=== PATIENT | female | born 1970 | race Caucasian/White ===

== ENCOUNTER 2017-06-16 10:01 | Emergency (ER) | payer OTHER ==
[~2017-06-16] VITALS: Ht 162.6 cm; Wt 69.5 kg
[2017-06-16 10:06] VITALS: Ht 162.6 cm; Wt 69.5 kg
[2017-06-16] MEDS ORDERED: morphine 4 MG/ML VIAL IV STA (11:34)
[2017-06-16] MEDS ORDERED: ONDANSETRON 4 MG INJ IV STA (11:34)
[2017-06-16 11:55] LABS: BASOPHILS % 0.2 % (0.0-2.0); EOSINOPHILS # 0.1 10^3/ul (0.0-0.5); EOSINOPHILS % 0.5 % (0.0-7.0); HEMATOCRIT 23.3 % (37.0-47.0); HEMOGLOBIN 7.4 g/dl (12.0-16.0); LYMPHOCYTES # 1.7 10^3/ul (0.8-2.9); LYMPHOCYTES % 10.7 % (15.0-51.0); MEAN CORPUSCULAR HGB CONC 31.8 g/dl (32.0-37.0); MEAN CORPUSCULAR VOLUME 94.3 fl (82.0-101.0); MEAN PLATELET VOLUME 8.3 fl (7.4-10.4); NEUTROPHILS % 81.8 % (39.0-77.0); NUCLEATED RED BLOOD CELLS% 0.3 /100WBC (0.0-0.0); PLATELET COUNT 334 10^3/UL (140-415); RED BLOOD COUNT 2.47 10^6/ul (4.20-5.40); RED CELL DISTRIBUTION WIDTH 13.2 % (11.5-14.5); WHITE BLOOD COUNT 15.9 10^3/ul (4.8-10.8)
[2017-06-16 12:13] LABS: ALBUMIN 3.4 g/dl (3.3-4.9); ALBUMIN/GLOBULIN RATIO 1.03; BILIRUBIN,INDIRECT 0.2 mg/dl (0-1.1); BILIRUBIN,TOTAL 0.2 mg/dl (0.2-1.3); CALCIUM 8.5 mg/dl (8.4-10.2); CREATININE 0.63 mg/dl (0.44-1.00); POTASSIUM 3.7 mmol/L (3.5-5.1); TOTAL PROTEIN 6.7 g/dl (6.1-8.1)
[2017-06-16 12:22] LABS: ADD UMIC YES; UR ASCORBIC ACID NEGATIVE (NEGATIVE); UR BACTERIA FEW /HPF (NONE SEEN); UR BILIRUBIN (Dip) NEGATIVE (NEGATIVE); UR BLOOD (Dip) 3+ mg/dL (NEGATIVE); UR CLARITY CLEAR (CLEAR); UR COLOR STRAW (YELLOW); UR GLUCOSE (Dip) NEGATIVE (NEGATIVE); UR KETONES (Dip) NEGATIVE (NEGATIVE); UR LEUKOCYTE ESTERASE (Dip) 1+ Leu/ul (NEGATIVE); UR NITRITE (Dip) NEGATIVE (NEGATIVE); UR RBC 3 /HPF (0-5); UR SPECIFIC GRAVITY (Dip) 1.002 (1.003-1.030); UR TOTAL PROTEIN (Dip) NEGATIVE (NEGATIVE); UR UROBILINOGEN (Dip) NEGATIVE (NEGATIVE)
--- NOTE | 2017-06-16 13:57 | ERD ---
ER Documentation Chief Complaint Chief Complaint ap w/heavy vaginal bleeding x3wks HPI This 46-year-old female who presents to the emergency department today complaining of abdominal pain and heavy vaginal bleeding for the past 3 weeks. Patient states that she had irregular periods for the past 4 months and then her menstrual cycle returned and she has had it for 3 weeks. States that she has a history of fibroids and a left-sided ovarian cyst. States that she initially at some point was on hormone replacement but is no longer taking any medication. Denies any fevers or chills. ROS All systems reviewed and are negative except as per history of present illness. Medications Home Meds Active Scripts Medroxyprogesterone Acetate* (Provera*) 10 Mg Tablet, 10 MG PO DAILY for 5 Days , TAB Prov:GABRIELLA PATRICIA PA-C 06/16/17 Cephalexin* (Keflex*) 500 Mg Capsule, 500 MG PO QID for 7 Days, CAP Prov:GABRIELLA PATRICIA PA-C 06/16/17 Naproxen* (Naprosyn*) 500 Mg Tablet, 500 MG PO BID Y for PAIN AND/OR INFLAMMATION, #30 TAB Prov:GABRIELLA PATRICIA PA-C 06/16/17 Docusate Sodium* (Colace*) 100 Mg Capsule, 100 MG PO TID, #30 CAP Prov:GABRIELLA PATRICIAC 06/16/17 Polyethylene Glycol* (Miralax*) 17 Gm Powd.pack, 17 GM PO DAILY, #30 PACKET Prov:GABRIELLA PATRICIA PA-C 06/16/17 Ferrous Sulfate* (Ferrous Sulfate*) 325 Mg Tabec, 325 MG PO BID, #30 TAB Prov:GABRIELLA PATRICIAC 06/16/17 Hydrocodone/Acetaminophen ([place] 5-325 Tablet) 1 Each Tablet, 1 TAB PO Q6H Y for PAIN, #10 TAB Prov:GABRIELLA PATRICIAC 06/16/17 Allergies Allergies: Coded Allergies: No Known Allergy (Unverified , 06/16/17) PMhx/Soc Medical and Surgical Hx: pt denies Medical Hx, pt denies Surgical Hx Physical Exam Vitals Vital Signs Date Time Temp Pulse Resp B/P Pulse Ox O2 Delivery O2 Flow Rate FiO2 06/16/17 10:06 98.4 102 20 135/74 99 Physical Exam Const: NAD Head: Atraumatic Eyes: Normal Conjunctiva ENT: Normal External Ears, Nose and Mouth. Neck: Full range of motion..~ No meningismus. Resp: Clear to auscultation bilaterally Cardio: Regular rate and rhythm, no murmurs Abd: Soft,diffuse lower abdominal and pelvic pain non distended. Normal bowel sounds no specific tenderness at McBurney's. Skin: No petechiae or rashes Back: No midline or flank tenderness Ext: No cyanosis, or edema Neur: Awake and alert Psych: Normal Mood and Affect Result Diagram: 06/16/17 1144 06/16/17 1144 Results 24 hrs Laboratory Tests Test 06/16/17 11:44 06/16/17 11:57 White Blood Count 15.910^3/ul Red Blood Count 2.4710^6/ul Hemoglobin 7.4g/dl Hematocrit 23.3% Mean Corpuscular Volume 94.3fl Mean Corpuscular Hemoglobin 30.0pg Mean Corpuscular Hemoglobin Concent 31.8g/dl Red Cell Distribution Width 13.2% Platelet Count 62272^3/UL Mean Platelet Volume 8.3fl Neutrophils % 81.8% Lymphocytes % 10.7% Monocytes % 6.0% Eosinophils % 0.5% Basophils % 0.2% Nucleated Red Blood Cells % 0.3/100WBC Neutrophils # 13.010^3/ul Lymphocytes # 1.710^3/ul Monocytes # 1.010^3/ul Eosinophils # 0.110^3/ul Basophils # 0.010^3/ul Nucleated Red Blood Cells # 0.010^3/ul Sodium Level 141mmol/L Potassium Level 3.7mmol/L Chloride Level 105mmol/L Carbon Dioxide Level 27mmol/L Anion Gap 13 Blood Urea Nitrogen 7mg/dl Creatinine 0.63mg/dl Glucose Level 78mg/dl Calcium Level 8.5mg/dl Total Bilirubin 0.2mg/dl Direct Bilirubin 0.00mg/dl Indirect Bilirubin 0.2mg/dl Aspartate Amino Transf (AST/SGOT) 15IU/L Alanine Aminotransferase (ALT/SGPT) 28IU/L Alkaline Phosphatase 51IU/L Total Protein 6.7g/dl Albumin 3.4g/dl Globulin 3.30g/dl Albumin/Globulin Ratio 1.03 Lipase 57U/L Urine Color STRAW Urine Clarity CLEAR Urine pH 8.0 Urine Specific Alexander 1.002 Urine Ketones NEGATIVEmg/dL Urine Nitrite NEGATIVEmg/dL Urine Bilirubin NEGATIVEmg/dL Urine Urobilinogen NEGATIVEmg/dL Urine Leukocyte Esterase 1+Danny/ul Urine Microscopic RBC 3/HPF Urine Microscopic WBC 5/HPF Urine Bacteria FEW/HPF Urine Hemoglobin 3+mg/dL Urine Glucose NEGATIVEmg/dL Urine Total Protein NEGATIVEmg/dl Current Medications Medications (Trade) Dose Ordered Sig/Reny Route PRN Reason Start Time Stop Time Status Last Admin Dose Admin Morphine Sulfate (morphine) 4 mg ONCE STAT IV 06/16/17 11:34 06/16/17 11:36 DC 06/16/17 12:07 Ondansetron HCl (Zofran Inj) 4 mg ONCE STAT IV 06/16/17 11:34 06/16/17 11:36 DC 06/16/17 12:07 Ketorolac Tromethamine (Toradol) 30 mg ONCE STAT IV 06/16/17 15:23 06/16/17 15:24 DC 06/16/17 15:38 DIAGNOSTIC IMAGING REPORT Patient: ISSAC FAUST : 1970 Age: 46 Sex: F MR #: [id number] DOS: 06/16/17 1224 Ordering MD: GABRIELLA PATRICIA PA-C Location: [facility] Room/Bed: PROCEDURE: CT Abdomen and Pelvis without contrast CLINICAL INDICATION: Left-sided abdominal pain, vaginal bleeding, history of ovarian cyst TECHNIQUE: Transaxial images were obtained through the abdomen and pelvis on a multi-slice scanner without the intravenous contrast administration. No oral contrast had previously been given. Sagittal and coronal re-formations were subsequently reconstructed. One or more of the following dose reduction techniques were used: - Automated exposure control. - Adjustment of the mA and/or kV according to patient size. - Use of iterative reconstruction technique. Radiation dose: CTDIvol = 11.48 mGy; DLP = 614.95 mGy-cm. COMPARISON: No prior studies are available for comparison. FINDINGS: Lung bases: The visualized lung bases appear unremarkable. Liver: Normal in size and in attenuation. There is no focal lesion. Gallbladder: Surgical hoda are seen in the gallbladder fossa. Bile ducts: The common hepatic duct is dilated to 1.2 mm. The extrahepatic biliary tree tapers distally with the common bile duct measuring 6.3 mm through the superior head of the pancreas and and tapering further more distally. Pancreas: Appears normal with no mass or inflammation evident. Spleen: Normal in size with no focal lesion. Adrenals: Normal with no mass identified. Kidneys, ureters and bladder: The kidneys are normal in size and there is no mass, pathological calcification, or hydronephrosis evident. There is no perinephric stranding. The ureters are normal in caliber and no ureteroliths are identified. The bladder appears unremarkable. Reproductive organs: The uterus is prominent and midline. There is a prominent largely solid structure within the left adnexal region measuring 7.1 x 5.5 x 4.7 cm containing a central cystic lesion measuring 3.7 x 2.8 x 2.1 cm. This could either represent an exophytic fibroid with central necrosis or a very prominent left ovary containing a cyst for which ovarian torsion should be considered clinically. Phleboliths are seen in the pelvis. Stomach and bowel: The stomach and bowel appear unremarkable without evidence of obstruction or inflammation. Appendix: A normal vermiform appendix is evident. Peritoneum: No free intraperitoneal fluid or air is identified. Aorta: Normal in caliber with no aneurysmal dilatation. IVC: Unremarkable. Lymph nodes: No pathologically enlarged nodes are identified. Osseous structures: The osseous elements appear intact. IMPRESSION: 1. Prominent midline ureters measuring 13.8 cm in sagittal diameter and 9.4 x 7.6 cm in cross diameter. 2. Within the left adnexal region there is a prominent largely solid structure measuring 7.1 x 5.5 x 4.7 cm containing a 3.7 x 2.0 x 2.1 cm cyst. This could either represent an exophytic fibroid with central necrosis or a prominent left ovary containing a cyst. The possibility of to portion should be considered clinically. This could be better evaluated by means of pelvic sonography. 3. No free intraperitoneal fluid or air is evident. 4. Status post cholecystectomy. The common hepatic duct is prominent at 1.2 mm but the common bile duct tapers to a normal caliber and the pancreas appears unremarkable. 5. Otherwise, unremarkable non-enhanced CT scan of the abdomen and pelvis. Findings of prominent left adnexal structure containing a cyst for which either an exophytic fibroid with central necrosis or a prominent left ovary containing a cyst for which ovarian torsion should be considered clinically were telephoned by Roe Miles MD to [facility] on 06/16/2017 and 1402 hours. Physician Berhane Date Time Electronically viewed and signed by Physician Berhane on 06/16/2017 14:04 RH/ CC: GABRIELLA PATRICIA PA-C DIAGNOSTIC IMAGING REPORT Patient: ISSAC FAUST : 1970 Age: 46 Sex: F MR #: [id number] DOS: 06/16/17 0000 Ordering MD: GABRIELLA PATRICIA PA-C Location: [facility] Room/Bed: PROCEDURE: US Pelvis. CLINICAL INDICATION: pelvic pain TECHNIQUE: Multiple sonographic images of the pelvis were obtained utilizing a transabdominal and endovaginal technique. The images were reviewed on a PACS workstation. COMPARISON: CT 06/16/2017 FINDINGS: The uterus is enlarged in size with a normal appearance of the myometrium. The uterus measures 12.8 x 8.0 x 8.5 cm. The endometrial stripe is homogeneous in appearance and has the thickness of 12.5 mm. The right ovary was not seen. The left ovary measures 5.2 x 3.7 x 3.6 cm. There is a 3.3 cm simple cyst in the left ovary. There is normal Doppler flow identified in the left ovary. No free fluid is present within the pelvis. RPTAT: AA IMPRESSION: Enlarged left ovary with a 3.3 cm simple cyst. Right ovary not visualized. Enlarged uterus with no discrete mass. .Delano Villalobos MD, Date Time Electronically viewed and signed by .Delano Villalobos MD, MD on 06/16/2017 15: 46 .S/ CC: GABRIELLA PATRICIA PA-C Procedures/[facility] This is a 46-year-old female who presents to the emergency department today complaining of lower abdominal pain and vaginal bleeding for the past 3 weeks. Given patient's physical exam I did obtain laboratory workup as well as imaging Laboratory workup shows an elevated white blood cell count of 15.9. Her hemoglobin is decreased at 7.4. Her platelets are within normal limits. Electrolytes are within normal limits. Glucose is within normal limits. Liver enzymes are within normal limits. Lipase is within normal limits. UA shows 1+ leukocyte esterase with 5 microscopic white blood cells. Negative nitrates. test is negative CT abdomen pelvis shows a prominent midline uterus measuring 13.8 cm x 9.4 x 7.6. Within the left adnexal region there is a prominent largely solid structure measuring 7.1 x 5.5 x 4.7 cm containing a 3.7 x 2.0 x 2.1 cm cyst. This could either represent an exophytic fibroid with central necrosis or prominent left ovary containing a cyst. Further evaluation by pelvic ultrasound would be helpful. There is no free fluid or free air. Otherwise unremarkable Received a call from the radiologist who recommended a pelvic ultrasound given the concern for large solid vs cystic structure Pelvic ultrasound enlarged left ovary with a 3.3 cm simple cyst. Right ovary is not visualized. There is normal Doppler flow identified in the left ovary. There is no free fluid present within the pelvis. Uterus is enlarged in size. Patient was given morphine and Zofran here in the emergency department. She stated that her pain was better but not all the way gone. She is complaining of some dizziness from the morphine. She was therefore given Toradol. Symptoms at this time is consistent with dysfunctional uterine bleeding likely caused by ovarian cysts and fibroids. Patient is anemic and her hemoglobin 7.4. She does not require transfusion at this time. She will be given a prescription for iron and Provera as well as MiraLAX and Colace. Be given a prescription for a short course of [place] and Naprosyn for home. Patient will also be given a prescription for Keflex to treat possible urinary tract infection as a cause of some of her abdominal and pelvic pain. All results were explained to the patient. 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 At this time the patient is stable for discharge and outpatient management. Patient should follow up with their PCP in the next 1-2 days. They may return to the emergency department sooner for any persistent or worsening of symptoms. Patient understood and agreed with the plan. Dr. Julian has seen and evaluated the patient and is in agreement with the plan. Results were explained to the patient. Also consulted Dr. Velasquez on the patient given patient's hemoglobin levels and he does not feel she requires transfusion at this time. Departure Diagnosis: Primary Impression: Pelvic pain Additional Impression: Vaginal bleeding Condition: GABRIELLA Del Cid PA-C Jun 16, 2017 13:57
--- NOTE | 2017-06-16 14:05 | RADRPT ---
PROCEDURE: CT Abdomen and Pelvis without contrast CLINICAL INDICATION: Left-sided abdominal pain, vaginal bleeding, history of ovarian cyst TECHNIQUE: Transaxial images were obtained through the abdomen and pelvis on a multi-slice scanner without the intravenous contrast administration. No oral contrast had previously been given. Sagit ellen and coronal re-formations were subsequently reconstructed. One or more of the following dose reduction techniques were used: - Automated exposure control. - Adjustment of the mA and/or kV according to patient size. - Use of iterative reconstruction technique. Radiation dose: CTDIvol = 11.48 mGy; DLP = 614.95 mGy-cm. COMPARISON: No prior studies are available for comparison. FINDINGS: Lung bases: The visualized lung bases appear unremarkable. Liver: Normal in size and in attenuation. There is no focal lesion. Gallbladder: Surgical hoda are seen in the gallbladder fossa. Bile ducts: The common hepatic duct is dilated to 1.2 mm. The extrahepatic biliary tree tapers dista lly with the common bile duct measuring 6.3 mm through the superior head of the pancreas and and tap ering further more distally. Pancreas: Appears normal with no mass or inflammation evident. Spleen: Normal in size with no focal lesion. Adrenals: Normal with no mass identified. Kidneys, ureters and bladder: The kidneys are normal in size and there is no mass, pathological calc ification, or hydronephrosis evident. There is no perinephric stranding. The ureters are normal in c aliber and no ureteroliths are identified. The bladder appears unremarkable. Reproductive organs: The uterus is prominent and midline. There is a prominent largely solid structu re within the left adnexal region measuring 7.1 x 5.5 x 4.7 cm containing a central cystic lesion me asuring 3.7 x 2.8 x 2.1 cm. This could either represent an exophytic fibroid with central necrosis o r a very prominent left ovary containing a cyst for which ovarian torsion should be considered clini gonzalez. Phleboliths are seen in the pelvis. Stomach and bowel: The stomach and bowel appear unremarkable without evidence of obstruction or infl ammation. Appendix: A normal vermiform appendix is evident. Peritoneum: No free intraperitoneal fluid or air is identified. Aorta: Normal in caliber with no aneurysmal dilatation. IVC: Unremarkable. Lymph nodes: No pathologically enlarged nodes are identified. Osseous structures: The osseous elements appear intact. IMPRESSION: 1. Prominent midline ureters measuring 13.8 cm in sagittal diameter and 9.4 x 7.[address] 2. Within the left adnexal region there is a prominent largely solid structure measuring 7.1 x 5.5 x 4.7 cm containing a 3.7 x 2.0 x 2.1 cm cyst. This could either represent an exophytic fibroid with central necrosis or a prominent left ovary containing a cyst. The possibility of to portion should be considered clinically. This could be better evaluated by means of pelvic sonography. 3. No free intraperitoneal fluid or air is evident. 4. Status post cholecystectomy. The common hepatic duct is prominent at 1.2 mm but the common bile duct tapers to a normal caliber and the pancreas appears unremarkable. 5. Otherwise, unremarkable non-enhanced CT scan of the abdomen and pelvis. Findings of prominent left adnexal structure containing a cyst for which either an exophytic fibroid with central necrosis or a prominent left ovary containing a cyst for which ovarian torsion should be considered clinically were telephoned by Roe Miles MD to [facility] on 06/16/2017 and 1 402 hours. Physician Berhane Date Time Electronically viewed and signed by Physician Berhane on 06/16/2017 14:04 /
[2017-06-16] MEDS ORDERED: KETOROLAC 30 MG INJ IV STA (15:23)
--- NOTE | 2017-06-16 15:46 | RADRPT ---
PROCEDURE: US Pelvis. CLINICAL INDICATION: pelvic pain TECHNIQUE: Multiple sonographic images of the pelvis were obtained utilizing a transabdominal and endovaginal technique. The images were reviewed on a PACS workstation. COMPARISON: CT 06/16/2017 FINDINGS: The uterus is enlarged in size with a normal appearance of the myometrium. The uterus measures 12.8 x 8.0 x 8.5 cm. The endometrial stripe is homogeneous in appearance and has the thickness of 12.5 mm. The right ovary was not seen. The left ovary measures 5.2 x 3.7 x 3.6 cm. There is a 3.3 cm simple cyst in the left ovary. There i s normal Doppler flow identified in the left ovary. No free fluid is present within the pelvis. RPTAT: AA IMPRESSION: Enlarged left ovary with a 3.3 cm simple cyst. Right ovary not visualized. Enlarged uterus with no discrete mass. .Delano Villalobos MD, Date Time Electronically viewed and signed by .Delano Villalobos MD, MD on 06/16/2017 15:46 .S/
[2017-06-16] MEDS ORDERED: FER325 PO (16:00)
[2017-06-16] MEDS ORDERED: HYDR-906 PO (16:00)
[2017-06-16] MEDS ORDERED: POLY17PO6 PO (16:00)
[2017-06-16] MEDS ORDERED: NAPR-260 PO (16:01)
[2017-06-16] MEDS ORDERED: CEPH-443 PO (16:01)
[2017-06-16] MEDS ORDERED: DOCU-144 PO (16:01)
[2017-06-16] MEDS ORDERED: MEDR10TA2 PO (16:01)
[2017-06-16 16:22] VITALS: BP 112/71; PULSE 102; RESP 18; TEMP 98.8
== END 2017-06-16 16:24 | disposition home or self-care (01) ==
LOC: FTE 10:01
DX: N93.9 Abnormal uterine and vaginal bleeding, unspecified (principal); R10.2 Pelvic and perineal pain
CPT/HCPCS: 36415; 74176; 76830; 76856; 80053; 81001; 83690; 85025; 96374; 96375; J1885; J2270; J2405; Z7502

== ENCOUNTER 2019-04-21 06:25 | Day surgery (SDC) | payer OTHER ==
[~2019-04-21] VITALS: Ht 157.5 cm; Wt 72.2 kg
[~2019-04-21 06:25] MED LIST: CEPH-443 PO; DOCU-144 PO; FER325 PO; HYDR-4011 PO; MEDR10TA2 PO; NAPR-985 PO; NO ACTIVE MEDS; POLY17PO6 PO
[2019-04-21 06:58] VITALS: Ht 157.5 cm; Wt 72.2 kg
[2019-04-21 07:25] VITALS: BP 135/83; PULSE 84; RESP 15
[2019-04-21] MEDS ORDERED: PROPOFOL 60 ML ONE (07:45)
[2019-04-21] MEDS ORDERED: LIDOCAINE 2% (SDV) 5 ML INJ ONE (07:45)
[2019-04-21] MEDS ORDERED: ALBUTEROL 0.083% (NEB) 2.5 MG/3 ML AMP HHN PRN (08:30)
[2019-04-21] MEDS ORDERED: FENTAnyl 50 MCG/ML VIAL IV PRN (08:30)
[2019-04-21] MEDS ORDERED: hydrALAzine 20 MG INJ IV PRN (08:30)
[2019-04-21] MEDS ORDERED: EPHEDrine 25 MG/5 ML SYG IV PRN (08:30)
[2019-04-21] MEDS ORDERED: LABETALOL HCL 20MG INJ IV PRN (08:30)
[2019-04-21] MEDS ORDERED: DIPHENHYDRAMINE 50 MG INJ IV PRN (08:30)
[2019-04-21] MEDS ORDERED: ONDANSETRON 4 MG INJ IV PRN (08:30)
[2019-04-21 08:38] VITALS: BP 122/83; PULSE 91; RESP 16
== END 2019-04-21 09:59 | disposition home or self-care (01) ==
LOC: GIL 06:25
PROVIDERS: ATTEND Internal Medicine Gastroenterology
DX: Z12.11 Encounter for screening for malignant neoplasm of colon (principal); D12.8 Benign neoplasm of rectum; K29.50 Unspecified chronic gastritis without bleeding; D12.7 Benign neoplasm of rectosigmoid junction
CPT/HCPCS: 43239; 45380; 88305; 88312; Z7610